=== PATIENT | male | born 1985 | race American Indian/Alaskan Native ===

== ENCOUNTER 2016-07-17 00:03 | Emergency (ER) | payer SELFPAY ==
[2016-07-17] MEDS ORDERED: BENADRYL IM ONE (00:45)
[2016-07-17] MEDS ORDERED: GEODON IM ONE (00:45)
[2016-07-17 00:56] LABS: Urine Drugs of Abuse Note Disclamer
[2016-07-17 01:01] LABS: Basophils % (Auto) 0.6 % (0.0-1.8)
[2016-07-17 01:10] LABS: Bacteria,Urine 1+ /HPF (Negative); Bilirubin,Urine NEG (Negative); Blood,Urine MOD (Negative); Ketones,Urine NEG (Negative); Leukocyte Esterase,Urine NEG (Negative); Mucus,Urine FEW /HPF; Nitrite,Urine NEG (Negative); Urobilinogen,Urine < 2.0 mg/dL (<2.0)
[2016-07-17] MEDS ORDERED: BOOSTRIX IM ONE ×3 (01:18→04:44)
[2016-07-17 01:21] LABS: Eosinophils % (Auto) 0.2 % (0.0-4.3); Hematocrit 46.4 % (35.5-45.6); Hemoglobin 15.3 gm/dl (11.8-15.2); Mean Corpuscular HGB Conc 33 % (32-34); Mean Corpuscular Hemoglobin 33 pg (28-32); Mean Corpuscular Volume 99 fl (84-94); Platelet Count 340 K/mm3 (140-440); Red Blood Count 4.69 M/mm3 (3.65-5.03); Red Cell Distribution Width 14.3 % (13.2-15.2); White Blood Count 9.3 K/mm3 (4.5-11.0)
--- NOTE | 2016-07-17 01:22 | Emergency Department Report ---
ED Psych HPI - General Chief Complaint: Psych Stated Complaint: MH EVAL Time Seen by Provider: 07/17/16 00:45 Source: police Mode of arrival: Stretcher Limitations: No Limitations - History of Present Illness Initial Comments: 31-year-old male with an unknown past medical history presents to the hospital in police custody. Patient is combative, homicidal, and threatening staff, requiring restraint by police and multiple staff members. Apparently patient was terrorizing his family's home. He threatened harm to his family members have ransacked the house doing multiple items. He also punched through a glass either window or TV sustaining a laceration. Patient apparently was recently released from longterm after serving 9 years. No other injury reported. Patient is right-hand dominant. Patient is to drinking a beer and smoking a blunt - Related Data Home Medications Medication Instructions Recorded Confirmed Last Taken Unobtainable 07/17/16 07/17/16 Unknown Allergies Allergy/AdvReac Type Severity Reaction Status Date / Time Unable to Assess Allergy Unverified 07/17/16 00:35 ED Review of Systems ROS: Stated complaint: MH EVAL Other details as noted in HPI Comment: All other systems reviewed and negative Other: Constitutional: No fevers Eyes: No eye pain ENT: No ear pain Neck: Denies pain Respiratory: Denies cough wheezing shortness of breath Cardiovascular: Denies chest pain GI: Denies abdominal pain : Denies dysuria Musculoskeletal: As per HPI Skin: As per HPI Neurologic: Denies headache, numbness, weakness Psychiatric: The ED Past Medical Hx - Social History Smoking Status: Unknown if ever smoked - Medications Home Medications: Home Medications Medication Instructions Recorded Confirmed Last Taken Type Unobtainable 07/17/16 07/17/16 Unknown History ED Physical Exam - General Limitations: No Limitations - Other Other exam information: General: No limitations, patient is alert in no acute distress Head exam: Atraumatic, normocephalic Eyes exam: Normal appearance, pupils equal reactive to light, extraocular movements intact ENT: Moist mucous membrane, normal oropharynx Neck exam: Normal inspection, full range of motion, no meningismus nontender Respiratory exam: Clear to auscultation bilateral, no wheezes, rales, crackles Cardiovascular: Normal rate and rhythm, normal heart sounds Abdomen: Soft, nondistended, and nontender, with normal bowel sounds, no rebound, or guarding Extremity: Right hand with a 3 cm vertical laceration extending to the fourth knuckle and along the fourth metacarpal area. Patient able to flex the fingers however unable to fully extend his fourth right finger. Patient has a smaller one centimeter area at the third knuckle area Back: Normal Inspection, full range of motion, no tenderness Neurologic: Alert, oriented x3, cranial nerves intact, no motor or sensory deficit Psychiatric: Patient irate and required IM medication and noted to continue treatment Skin: Warm, dry, intact ED Course Vital Signs 07/17/16 07/17/16 00:30 00:36 Temperature 98.8 F Pulse Rate 105 H Respiratory 18 18 Rate Blood Pressure 140/95 [Left] O2 Sat by Pulse 99 99 Oximetry - Reevaluation(s) Reevaluation #1: 07/17/16 03:09 Is calmer after receiving Geodon and Benadryl. 1 L IV fluids ordered due to mild elevation in CK and UDS positive cocaine. Patient also has acute alcohol intoxication and UDS positive for marijuana - Consultations Consultation #1: 07/17/16 01:39 Case was discussed with Dr. Rasmussen hand surgeon at [facility] regarding proper acute management of extensor tendon injury. She advises that there is a 2 week period for repair and shows no difference in outcome compared to immediate repair. Recommend closing the skin, ulnar gutter splint, and follow-up within 2 weeks. - Laceration /Wound Repair Right Head Wound Location: upper extremity Wound Length (cm): 3 (3.5cm) Wound's Depth, Shape: linear Wound Explored: clean Irrigated w/ Saline (ccs): 500 Betadine Prep?: Yes Anesthesia: Lidocaine w/ Epi Volume Anesthetic (ccs): 5 Wound Repaired With: sutures Suture Size/Type: 4:0, nylon Number of Sutures: 9 Layer Closure?: No Sterile Dressing Applied?: Yes Progress: Patient had a second laceration as well.. It is also in the dorsum of the hand located at the third knuckle. 1 cm in length in patient received 3 sutures at this location ED Medical Decision Making - Lab Data Result diagrams: 07/17/16 00:59 07/17/16 00:29 Lab Results 07/17/16 07/17/16 07/17/16 Range/Units 00:29 00:29 00:29 WBC (4.5-11.0) K/mm3 RBC (3.65-5.03) M/mm3 Hgb (11.8-15.2) gm/dl Hct (35.5-45.6) % MCV (84-94) fl MCH (28-32) pg MCHC (32-34) % RDW (13.2-15.2) % Plt Count (140-440) K/mm3 Lymph % (Auto) (13.4-35.0) % [place] % (Auto) (0.0-7.3) % Eos % (Auto) (0.0-4.3) % Baso % (Auto) (0.0-1.8) % Lymph # (1.2-5.4) K/mm3 [place] # (0.0-0.8) K/mm3 Eos # (0.0-0.4) K/mm3 Baso # (0.0-0.1) K/mm3 Seg Neutrophils % (40.0-70.0) % Seg Neutrophils # (1.8-7.7) K/mm3 Sodium 142 (137-145) mmol/L Potassium 3.9 (3.6-5.0) mmol/L Chloride 99.7 (98-107) mmol/L Carbon Dioxide 16 L (22-30) mmol/L BUN 9 (9-20) mg/dL Creatinine 1.1 (0.8-1.5) mg/dL Estimated GFR > 60 ml/min BUN/Creatinine Ratio 8.18 % Glucose 88 (75-100) mg/dL Calcium 9.0 (8.4-10.2) mg/dL Total Creatine Kinase 449 H (55-170) units/L Urine Color Yellow (Yellow) Urine Turbidity Slightly-cloudy (Clear) Urine pH 5.0 (5.0-7.0) Ur Specific [place] 1.012 (1.003-1.030) Urine Protein 100 mg/dl (Negative) mg/dL Urine Glucose (UA) Neg (Negative) mg/dL Urine Ketones Neg (Negative) mg/dL Urine Blood Mod (Negative) Urine Nitrite Neg (Negative) Urine Bilirubin Neg (Negative) Urine Urobilinogen < 2.0 (<2.0) mg/dL Ur Leukocyte Esterase Neg (Negative) Urine WBC (Auto) 2.0 (0.0-6.0) /HPF Urine RBC (Auto) 11.0 (0.0-6.0) /HPF U Epithel Cells (Auto) 1.0 (0-13.0) /HPF Urine Bacteria (Auto) 1+ (Negative) /HPF Amorphous Crystals 1+ Hyaline Casts 49 /LPF Urine Mucus Few /HPF Salicylates (2.8-20.0) mg/dL Urine Opiates Screen Presumptive negative Urine Methadone Screen Presumptive negative Acetaminophen (10.0-30.0) ug/mL Ur Barbiturates Screen Presumptive negative Ur Phencyclidine Scrn Presumptive negative Ur Amphetamines Screen Presumptive negative U Benzodiazepines Scrn Presumptive negative Urine Cocaine Screen Presumptive positive U Marijuana (THC) Screen Presumptive positive Drugs of Abuse Note Disclamer Plasma/Serum Alcohol (0-0.07) gm% 07/17/16 07/17/16 07/17/16 Range/Units 00:29 00:29 00:29 WBC (4.5-11.0) K/mm3 RBC (3.65-5.03) M/mm3 Hgb (11.8-15.2) gm/dl Hct (35.5-45.6) % MCV (84-94) fl MCH (28-32) pg MCHC (32-34) % RDW (13.2-15.2) % Plt Count (140-440) K/mm3 Lymph % (Auto) (13.4-35.0) % [place] % (Auto) (0.0-7.3) % Eos % (Auto) (0.0-4.3) % Baso % (Auto) (0.0-1.8) % Lymph # (1.2-5.4) K/mm3 [place] # (0.0-0.8) K/mm3 Eos # (0.0-0.4) K/mm3 Baso # (0.0-0.1) K/mm3 Seg Neutrophils % (40.0-70.0) % Seg Neutrophils # (1.8-7.7) K/mm3 Sodium (137-145) mmol/L Potassium (3.6-5.0) mmol/L Chloride (98-107) mmol/L Carbon Dioxide (22-30) mmol/L BUN (9-20) mg/dL Creatinine (0.8-1.5) mg/dL Estimated GFR ml/min BUN/Creatinine Ratio % Glucose (75-100) mg/dL Calcium (8.4-10.2) mg/dL Total Creatine Kinase (55-170) units/L Urine Color (Yellow) Urine Turbidity (Clear) Urine pH (5.0-7.0) Ur Specific [place] (1.003-1.030) Urine Protein (Negative) mg/dL Urine Glucose (UA) (Negative) mg/dL Urine Ketones (Negative) mg/dL Urine Blood (Negative) Urine Nitrite (Negative) Urine Bilirubin (Negative) Urine Urobilinogen (<2.0) mg/dL Ur Leukocyte Esterase (Negative) Urine WBC (Auto) (0.0-6.0) /HPF Urine RBC (Auto) (0.0-6.0) /HPF U Epithel Cells (Auto) (0-13.0) /HPF Urine Bacteria (Auto) (Negative) /HPF Amorphous Crystals Hyaline Casts /LPF Urine Mucus /HPF Salicylates < 0.3 L (2.8-20.0) mg/dL Urine Opiates Screen Urine Methadone Screen Acetaminophen < 15.0 (10.0-30.0) ug/mL Ur Barbiturates Screen Ur Phencyclidine Scrn Ur Amphetamines Screen U Benzodiazepines Scrn Urine Cocaine Screen U Marijuana (THC) Screen Drugs of Abuse Note Plasma/Serum Alcohol 0.09 H (0-0.07) gm% 07/17/16 Range/Units 00:59 WBC 9.3 (4.5-11.0) K/mm3 RBC 4.69 (3.65-5.03) M/mm3 Hgb 15.3 H (11.8-15.2) gm/dl Hct 46.4 H (35.5-45.6) % MCV 99 H (84-94) fl MCH 33 H (28-32) pg MCHC 33 (32-34) % RDW 14.3 (13.2-15.2) % Plt Count 340 (140-440) K/mm3 Lymph % (Auto) 21.5 (13.4-35.0) % [place] % (Auto) 9.1 H (0.0-7.3) % Eos % (Auto) 0.2 (0.0-4.3) % Baso % (Auto) 0.6 (0.0-1.8) % Lymph # 2.0 (1.2-5.4) K/mm3 [place] # 0.8 (0.0-0.8) K/mm3 Eos # 0.0 (0.0-0.4) K/mm3 Baso # 0.1 (0.0-0.1) K/mm3 Seg Neutrophils % 68.6 (40.0-70.0) % Seg Neutrophils # 6.4 (1.8-7.7) K/mm3 Sodium (137-145) mmol/L Potassium (3.6-5.0) mmol/L Chloride (98-107) mmol/L Carbon Dioxide (22-30) mmol/L BUN (9-20) mg/dL Creatinine (0.8-1.5) mg/dL Estimated GFR ml/min BUN/Creatinine Ratio % Glucose (75-100) mg/dL Calcium (8.4-10.2) mg/dL Total Creatine Kinase (55-170) units/L Urine Color (Yellow) Urine Turbidity (Clear) Urine pH (5.0-7.0) Ur Specific [place] (1.003-1.030) Urine Protein (Negative) mg/dL Urine Glucose (UA) (Negative) mg/dL Urine Ketones (Negative) mg/dL Urine Blood (Negative) Urine Nitrite (Negative) Urine Bilirubin (Negative) Urine Urobilinogen (<2.0) mg/dL Ur Leukocyte Esterase (Negative) Urine WBC (Auto) (0.0-6.0) /HPF Urine RBC (Auto) (0.0-6.0) /HPF U Epithel Cells (Auto) (0-13.0) /HPF Urine Bacteria (Auto) (Negative) /HPF Amorphous Crystals Hyaline Casts /LPF Urine Mucus /HPF Salicylates (2.8-20.0) mg/dL Urine Opiates Screen Urine Methadone Screen Acetaminophen (10.0-30.0) ug/mL Ur Barbiturates Screen Ur Phencyclidine Scrn Ur Amphetamines Screen U Benzodiazepines Scrn Urine Cocaine Screen U Marijuana (THC) Screen Drugs of Abuse Note Plasma/Serum Alcohol (0-0.07) gm% Anion gap: 30 - Medical Decision Making Patient's labs suggestive of anion gap acidosis likely related to acute alcohol ingestion. Patient has mild elevated CK and received 1 L of normal saline. Patient will be discharged into police custody. Right ulnar gutter splint placed in the ED and expected by me. Patient need follow-up within 2 weeks for surgical repair of his extensor tendon of his fourth finger - Differential Diagnosis tendon laceration, foreign body, fracture, substance abuse, psychosis Critical Care Time: No Critical care attestation.: If time is entered above; I have spent that time in minutes in the direct care of this critically ill patient, excluding procedure time. ED Disposition Clinical Impression: Combative behavior, Alcohol intoxication, Cocaine abuse, Laceration of right hand, Injury of extensor tendon of right hand Disposition: DISCHARGED TO HOME OR SELFCARE Is pt being admited?: No Does the pt Need Aspirin: No Condition: Stable Instructions: Laceration (ED), Polysubstance Abuse (ED) Additional Instructions: You have a cut to the tendon on the back of your right hand and cannot fully extend your fourth finger. This will need surgical repair by a hand surgeon within 2 weeks. You will also need your stitches to be removed within 7-10 days. Please return if worsening pain or signs of infection. It is very important that you follow-up with the hand surgeon for surgical repair of the tendon within 2 weeks. Therefore I recommend calling as soon as possible to schedule this appointment and informed them of your injury. If you do not follow-up within 2 weeks for surgical repair you will likely have permanent damage and limited range of motion to your finger Referrals: LINSEY WOODS MD [Staff Physician] - [facility] Time of Disposition: 05:20
[2016-07-17 01:34] LABS: Anion Gap 30 mmol/L; BUN/Creatinine Ratio 8.18; Blood Urea Nitrogen 9 mg/dL (9-20); Carbon Dioxide 16 mmol/L (22-30); Chloride 99.7 mmol/L (98-107); Creatine Kinase 449 units/L (55-170); Glucose 88 mg/dL (75-100); Potassium 3.9 mmol/L (3.6-5.0); Sodium 142 mmol/L (137-145)
[2016-07-17] MEDS ORDERED: NACL 0.9% 1000 ML 1,000 ML IV SCH (04:00)
[2016-07-17] MEDS ORDERED: XYLOCAINE 1%/ EPI 1:100,000 INFILTRATI ONE (04:52)
[2016-07-17] MEDS ORDERED: NACL 0.9% 500 ML IR ONE (04:52)
[2016-07-17 05:16] VITALS: BP 131/78
[2016-07-17] MEDS ORDERED: NACL 0.9% IR ONE (07:42)
--- NOTE | 2016-07-17 10:20 | XRay Report ---
RIGHT HAND, 3 views: History: Right hand laceration, pain. The bony architecture is intact. Bony alignment is normal. No soft tissue abnormalities are seen. The joint spaces appear preserved. IMPRESSION: Normal right hand.
== END 2016-07-17 05:42 | disposition home or self-care (01) ==
LOC: EDBD → ED 00:03
DX: S61.411A Laceration without foreign body of right hand, initial encounter (principal); R46.89 Other symptoms and signs involving appearance and behavior; F10.129 Alcohol abuse with intoxication, unspecified; W26.8XXA Contact with other sharp object(s), not elsewhere classified, initial encounter; Y93.89 Activity, other specified; Y99.9 Unspecified external cause status; Y92.89 Other specified places as the place of occurrence of the external cause
CPT/HCPCS: 12002; 36415; 73130; 80048; 80307; 81001; 82550; 85025; 90471; 90715; 96360; 96372; 99284; G0480; J7030; 80320